=== PATIENT | female | born 1955 | race Caucasian/White ===

== ENCOUNTER → 2019-08-06 21:23 | Outpatient (CLI) | payer BC ==
[2016-07-04 09:13] VITALS: BMI 28.3
[~2019-08-06 21:23] MED LIST: HCTZ25 MG PO; PROAIR HFA8.5 GM INH; SYNTHROID25 MCG PO; ULTRACET TABLET1 TAB PO; ZOFRAN4 MG PO
== END | disposition home or self-care (01) ==
LOC: D.MAMMO 07-01 15:30
PROVIDERS: ATTEND Family Medicine
DX: Z00.00 Encounter for general adult medical examination without abnormal findings (principal)

== ENCOUNTER → 2020-01-25 13:35 | Outpatient (CLI) | payer MEDICARE ==
[2016-07-04 09:13] VITALS: BMI 28.3
[2020-01-25 14:23] LABS: BASOPHILS 0.7 % (0-2); EOSINOPHILS 5.4 % (0-7); HEMATOCRIT 40.4 % (36.0-48.0); HEMOGLOBIN 13.2 g/dL (12-16); IMMATURE GRANULOCYTES 0.3 % (0-5); LYMPHOCYTES 25.1 % (15-50); MCH 31.6 pg (26.0-34.0); MCHC 32.7 g/dL (31.0-37.0); MCV 96.7 fL (80.0-100.0); MEAN PLATELET VOLUME 10.4 fL (7.4-10.4); MONOCYTES 8.7 % (2-11); NEUTROPHILS 59.8 % (40-80); PLATELET COUNT 312 10x3/uL (130-400); RBC 4.18 10x6/uL (4.00-5.40); RDW 13.8 % (11.5-14.5); WBC 6.8 10x3/uL (4.8-10.8)
[2020-01-26 07:14] LABS: IMMUNOGLOBULIN A 182 mg/dL (87-352); IMMUNOGLOBULIN G 955 mg/dL (586-1602)
== END | disposition home or self-care (01) ==
LOC: D.LAB 13:35
PROVIDERS: ATTEND Internal Medicine Pulmonary Disease
DX: Z87.09 Personal history of other diseases of the respiratory system (principal); Z87.01 Personal history of pneumonia (recurrent); J68.3 Other acute and subacute respiratory conditions due to chemicals, gases, fumes and vapors; Z11.59 Encounter for screening for other viral diseases

== ENCOUNTER → 2020-01-27 13:25 | Outpatient (CLI) | payer MEDICARE ==
[2016-07-04 09:13] VITALS: BMI 28.3
== END | disposition home or self-care (01) ==
LOC: D.RT 13:00
PROVIDERS: ATTEND Internal Medicine Pulmonary Disease
DX: J68.3 Other acute and subacute respiratory conditions due to chemicals, gases, fumes and vapors (principal); Z87.09 Personal history of other diseases of the respiratory system

== ENCOUNTER 2020-11-29 21:00 | Outpatient (CLI) | payer MEDICARE ==
[2016-07-04 09:13] VITALS: BMI 28.3
== END 2020-11-29 23:59 | disposition home or self-care (01) ==
LOC: D.MAMMO 21:00
PROVIDERS: ATTEND Family Medicine
DX: Z12.31 Encounter for screening mammogram for malignant neoplasm of breast (principal)

== ENCOUNTER → 2020-12-23 08:19 | Outpatient (CLI) | payer MEDICARE ==
[2016-07-04 09:13] VITALS: BMI 28.3
== END | disposition home or self-care (01) ==
LOC: D.NM 12-21 09:00
PROVIDERS: ATTEND Family Medicine
DX: R10.13 Epigastric pain (principal)